=== PATIENT | female | born 1965 ===

== ENCOUNTER 2023-03-15 07:56 | Day surgery (SDC) | payer OTHER ==
[2023-03-08 11:33] LABS: URINE APPEARANCE Clear; URINE BILIRRUBIN Negative (NEGATIVE); URINE BLOOD Small; URINE COLOR Yellow; URINE GLUCOSE Negative (NEGATIVE); URINE LEUKOCYTE Negative; URINE NITRATE Negative; URINE PROTEIN Negative (NEGATIVE); URINE UROBILINOGEN 0.2 E.U./dl
[2023-03-08 11:35] LABS: URINE BACTERIA 71.8 uL (0.0-1933); URINE EPITHELIAL CELLS 9.5 uL (0.0-38.8); URINE RBC 75.5 uL (0.0-20.8)
[2023-03-08 11:44] LABS: HEMATOCRIT 40.5 % (36.0-45.00); MEAN CELL VOLUME 85.9 fL (80.00-100.00); MEAN CORPUSCULAR HEMOGLOBIN 27.6 pg (27.00-32.0); MEAN CORPUSCULAR HGB CONC 32.1 g/dl (32.0-36.0); PLATELET COUNT 294 K/uL (150-450); RED BLOOD COUNT 4.72 M/uL (4.00-6.00); RED CELL DISTRIBUTION WIDTH 13.4 % (11.5-14.5)
[2023-03-08 11:52] LABS: URINE WBC 1.5 uL (0.0-23.2)
[2023-03-08 12:05] LABS: ALBUMIN 3.5 gm/dL (3.4-5.0); BILIRUBIN TOTAL 1.03 mg/dL (0.3-1.2); CALCIUM 8.8 mg/dL (8.5-10.1); CREATININE SERUM 0.63 mg/dL (0.55-1.02); GFR 98.11; GLOBULINA 3.3 G/DL (2.4-3.5); POTASSIUM 4.04 mEq/L (3.5-5.1); TOTAL PROTEIN 6.8 gm/dL (6.4-8.2)
[2023-03-08 12:10] LABS: INR 1.03; PARTIAL THROMBOPLASTIN TIME 26.2 SECONDS (22.0-34.0); PROTHROMBIN TIME 10.8 SECONDS (9.0-11.5)
[~2023-03-15] VITALS: Ht 157.5 cm; Wt 53.5 kg
[~2023-03-15 07:56] MED LIST: CATAFLAN PO
== END 2023-03-15 14:50 | disposition home or self-care (01) ==
LOC: CIR.AMB 07:56
PROVIDERS: ATTEND Orthopaedic Surgery
DX: M77.11 Lateral epicondylitis, right elbow (principal); M24.821 Other specific joint derangements of right elbow, not elsewhere classified; M67.931 Unspecified disorder of synovium and tendon, right forearm; I10 Essential (primary) hypertension; Z20.822 Contact with and (suspected) exposure to COVID-19